=== PATIENT | female | born 1985 | race Hispanic/Latino ===

== ENCOUNTER 2018-10-12 14:15 | Outpatient (CLI) | payer BC ==
--- NOTE | 2018-10-12 16:11 | ULT ---
PELVIC SONOGRAM: HISTORY: Recent miscarriage. Pain and bleeding. Fever. TECHNIQUE: Transabdominal and transvaginal imaging with duplex evaluation. FINDINGS: The urinary bladder is incompletely distended. The uterus has a heterogeneous echotexture and is 8 c m. The endometrium is 0.6 cm. No free fluid in the pelvis. The right ovary is 3.4 cm and the left is 2.8 cm. Each has a normal appearance with good color and s pectral Doppler flow. Small follicles bilaterally. IMPRESSION: Normal sonographic appearance of the pelvis, including the endometrium. POS: [facility]
== END 2018-10-12 14:16 | disposition home or self-care (01) ==
LOC: ULT 14:15
PROVIDERS: ATTEND Advanced Practice Midwife
DX: O03.30 Unspecified complication following incomplete spontaneous abortion (principal)
CPT/HCPCS: 76856